=== PATIENT | male | born 1945 | race Caucasian/White ===

== ENCOUNTER 2017-02-17 15:45 | Emergency (ER) | payer MEDICARE ==
[2017-02-17 17:29] LABS: HEMOGLOBIN 13.2 gm/dl (14.0-17.5); RED BLOOD COUNT 4.22 M/UL (4.20-5.50); WHITE BLOOD COUNT 6.2 K/UL (4.5-11.0)
[2017-02-17 17:47] LABS: BUN/CREATININE RATIO 21 (0-10)
== END 2017-02-17 23:14 | disposition home or self-care (01) ==
LOC: ER1 15:45
PROVIDERS: Emergency Medicine
DX: K59.00 Constipation, unspecified (principal); G20 Parkinson's disease; Z79.82 Long term (current) use of aspirin; Z79.899 Other long term (current) drug therapy
CPT/HCPCS: 36415; 80053; 83690; 84484; 85025; 85610; 85730; 93005; 99284